=== PATIENT | female | born 1965 | race African-American/Black ===

== ENCOUNTER 2016-12-31 14:44 | Emergency (ER) | payer MEDICAID ==
[~2016-12-31] VITALS: Ht 162.6 cm; Wt 75.0 kg
[2016-12-31 15:15] VITALS: BP 146/87
== END 2016-12-31 17:50 | disposition left against medical advice (07) ==
LOC: ER 14:57
DX: R06.02 Shortness of breath (principal); I12.9 Hypertensive chronic kidney disease with stage 1 through stage 4 chronic kidney disease, or unspecified chronic kidney disease; N18.9 Chronic kidney disease, unspecified
CPT/HCPCS: 99283; 99285

== ENCOUNTER 2017-07-22 14:10 | Inpatient (IN) | payer MEDICAID ==
[~2017-07-22] VITALS: Ht 152.4 cm; Wt 93.0 kg
[2017-07-22] MEDS ORDERED: FURO-152 PO (14:14)
[2017-07-22] MEDS ORDERED: ALBUTEROL (0.083%) 2.5MG/3ML NEB HHN STA (16:27)
[2017-07-22] MEDS ORDERED: FUROSEMIDE 40MG/4ML VIAL IVP ONE (16:30)
[2017-07-22] MEDS ORDERED: ALBUTEROL (0.083%) 2.5MG/3ML NEB ONE (16:34)
[2017-07-22] MEDS ORDERED: HYDROCODONE/ACETAMINOPHEN 5/325MG TABLET PO PRN (17:15)
[2017-07-22] MEDS ORDERED: ONDANSETRON HCL 4MG/2ML VIAL IV PRN (17:15)
[2017-07-22] MEDS ORDERED: IPRATROPIUM/ALBUTEROL 0.5-3(2.5)MG/3ML NEB INH PRN (17:15)
[2017-07-22] MEDS ORDERED: ACETAMINOPHEN 325MG TABLET PO PRN (17:15)
[2017-07-22] MEDS ORDERED: MAGNESIUM/ALUMINUM HYDROXIDE/SIMETHICONE 30ML UDC PO PRN (17:15)
[2017-07-22] MEDS ORDERED: DOCUSATE SODIUM 100MG CAPSULE PO PRN (17:15)
[2017-07-22 17:19] LABS: BASOPHILS % 1.1 % (0.0-2.0); EOSINOPHILS % 2.3 % (0.0-5.0); HEMATOCRIT. 47.2 % (36.0-48.0); HEMOGLOBIN. 15.8 g/dL (12.0-16.0); LYMPHOCYTES % 32.9 % (20.0-50.0); MEAN CORPUSCULAR HEMOGLOBIN 31.2 pg (28.0-32.0); MEAN CORPUSCULAR VOLUME 93.1 fL (81.0-99.0); MEAN PLATELET VOLUME 9.1 fl (7.4-10.4); MONOCYTES % 7.9 % (2.0-8.0); NEUTROPHILS % 55.8 % (40.0-76.0); PLATELET 237 x1000/uL (130-400); RED BLOOD CELL COUNT 5.06 mill/uL (4.2-5.4); RED CELL DISTRIBUTION WIDTH 16.1 % (11.6-14.6)
[2017-07-22 17:29] LABS: INR 1.1; PARTIAL THROMBOPLASTIN TIME 24.5 sec (23.4-31.0); PROTHROMBIN TIME 11.3 sec (9.4-11.6)
[2017-07-22 19:52] LABS: CARBON DIOXIDE 22 mEq/L (21-32); CHLORIDE 107 mEq/L (98-107)
[2017-07-22 19:59] LABS: TROPONIN I 0.06 ng/mL (0.00-0.04)
[2017-07-22] MEDS: CLONIDINE 0.1MG TABLET PO PRN (21:11)
[2017-07-22 23:30] VITALS: BP 167/109
[2017-07-22 23:45] VITALS: BP 167/109
[2017-07-23 04:00] VITALS: BP 176/112
[2017-07-23] MEDS: CLONIDINE 0.1MG TABLET PO PRN ×2 (04:39→20:14)
[2017-07-23] MEDS: FUROSEMIDE 40MG/4ML VIAL IVP SCH ×2 (05:27→18:04)
[2017-07-23 07:40] VITALS: BP 152/94
[2017-07-23 08:07] LABS: CREATINE KINASE MB FRACTION 2.8 ng/mL (0.5-3.6)
[2017-07-23] MEDS ORDERED: ENOXAPARIN 40MG/0.4ML SYR SUBCUT SCH (09:00)
[2017-07-23 09:29] LABS: CLARITY URINE CLOUDY (CLEAR); COLOR URINE YELLOW (YELLOW); GLUCOSE URINE NEGATIVE (NEGATIVE); KETONES URINE NEGATIVE (NEGATIVE); LEUKOCYTE ESTERASE URINE TRACE (NEGATIVE); NITRITE URINE NEGATIVE (NEGATIVE); OCCULT BLOOD URINE 1+ (NEGATIVE); PROTEIN URINE 3+ (NEGATIVE); SPECIFIC GRAVITY URINE 1.018 (1.005-1.030); UROBILINOGEN URINE 0.2 E.U./dL (0.2-1.0)
[2017-07-23 09:53] LABS: *AMPHETAMINES SCREEN URINE NEGATIVE (NEGATIVE); *BARBITURATES SCREEN URINE NEGATIVE (NEGATIVE); *BENZODIAZEPINES SCREEN URINE NEGATIVE (NEGATIVE); *COCAINE SCREEN URINE NEGATIVE (NEGATIVE); CANNABINOID URINE SCREEN NEGATIVE (NEGATIVE); METHADONE URINE SCREEN NEGATIVE (NEGATIVE); OPIATES URINE SCREEN NEGATIVE (NEGATIVE); PHENCYCLIDINE URINE SCREEN NEGATIVE (NEGATIVE)
[2017-07-23] MEDS ORDERED: PNEUMOCOCCAL 23-VAL P-SAC VAC 0.5 ML IM ONE (10:00)
[2017-07-23 11:55] VITALS: BP 107/107
[2017-07-23 16:00] VITALS: BP 155/100
[2017-07-23 20:00] VITALS: BP 184/110
[2017-07-23] MEDS: ENOXAPARIN 40MG/0.4ML SYR SUBCUT SCH (20:14)
[2017-07-23] MEDS: CARVEDILOL 12.5MG TABLET PO SCH (21:54)
[2017-07-23] MEDS: LISINOPRIL 5MG TABLET PO SCH (21:54)
[2017-07-24 00:18] VITALS: BP 155/108
[2017-07-24] MEDS: CLONIDINE 0.1MG TABLET PO PRN (01:37)
[2017-07-24 04:00] VITALS: BP 156/95
[2017-07-24] MEDS: FUROSEMIDE 40MG/4ML VIAL IVP SCH (05:56)
[2017-07-24 06:56] LABS: BASOPHILS % 0.9 % (0.0-2.0); EOSINOPHILS % 1.3 % (0.0-5.0); HEMATOCRIT. 46.4 % (36.0-48.0); HEMOGLOBIN. 15.7 g/dL (12.0-16.0); LYMPHOCYTES % 16.5 % (20.0-50.0); MEAN CORPUSCULAR HEMOGLOBIN 31.3 pg (28.0-32.0); MEAN CORPUSCULAR VOLUME 92.2 fL (81.0-99.0); MONOCYTES % 10.3 % (2.0-8.0); PLATELET 219 x1000/uL (130-400); RED BLOOD CELL COUNT 5.03 mill/uL (4.2-5.4); RED CELL DISTRIBUTION WIDTH 15.6 % (11.6-14.6)
[2017-07-24 08:00] VITALS: BP 140/87
[2017-07-24] MEDS: CARVEDILOL 12.5MG TABLET PO SCH (08:56)
[2017-07-24] MEDS: LISINOPRIL 5MG TABLET PO SCH (08:56)
[2017-07-24] MEDS: ENOXAPARIN 40MG/0.4ML SYR SUBCUT SCH (08:59)
[2017-07-24] MEDS ORDERED: POTASSIUM CHLORIDE 20MEQ TABLET SR PO SCH (09:45)
[2017-07-24] MEDS ORDERED: SPIRONOLACTONE 25MG TABLET PO SCH (09:45)
[2017-07-24 12:00] VITALS: BP 124/82
[2017-07-24 15:39] VITALS: BP 130/75
[2017-07-24] MEDS ORDERED: CARVEDILOL 25MG TABLET PO SCH (21:00)
== END 2017-07-24 17:05 | disposition home or self-care (01) | DRG 194 ==
LOC: ER 14:51 → 8WST 16:40 → EDBEDREQ 16:46 → ENRESERV 21:36
PROVIDERS: ADMIT Internal Medicine; ATTEND Internal Medicine
DX: I13.0 Hypertensive heart and chronic kidney disease with heart failure and stage 1 through stage 4 chronic kidney disease, or unspecified chronic kidney disease (principal); Z68.41 Body mass index [BMI] 40.0-44.9, adult; I42.9 Cardiomyopathy, unspecified; I50.41 Acute combined systolic (congestive) and diastolic (congestive) heart failure; N39.0 Urinary tract infection, site not specified; I34.0 Nonrheumatic mitral (valve) insufficiency; R73.9 Hyperglycemia, unspecified; E66.9 Obesity, unspecified; N18.9 Chronic kidney disease, unspecified; Z91.19 Patient's noncompliance with other medical treatment and regimen; Z79.899 Other long term (current) drug therapy
CPT/HCPCS: 36415; 71010; 80048; 80053; 80061; 80305; 81001; 82550; 82553; 83036; 83605; 83690; 83735; 83880; 84443; 84484; 85025; 85610; 85730; 87040; 87086; 90732; 93005; 93306; 93970; 94640; 96374; 99291; J1650; J1940; J7611

== ENCOUNTER 2020-05-06 20:45 | Inpatient (IN) | payer MEDICAID ==
[~2020-05-06] VITALS: Ht 152.4 cm; Wt 103.0 kg
[2020-05-06] MEDS ORDERED: NITROGLYCERIN 0.4MG TABLET SL SL PRN (21:15)
[2020-05-06] MEDS ORDERED: ASPIRIN 81MG TABLET PO ONE (21:15)
[2020-05-06] MEDS ORDERED: FUROSEMIDE 40MG/4ML VIAL IV ONE (21:15)
[2020-05-06 22:02] LABS: BASOPHILS % 0.9 % (0.0-2.0); EOSINOPHILS % 1.4 % (0.0-5.0); HEMATOCRIT. 45.2 % (36.0-48.0); LYMPHOCYTES % 28.6 % (20.0-50.0); MEAN CORPUSCULAR HEMOGLOBIN 29.2 pg (28.0-32.0); MEAN CORPUSCULAR VOLUME 87.9 fL (81.0-99.0); MEAN PLATELET VOLUME 9.7 fl (7.4-10.4); MONOCYTES % 8.9 % (2.0-8.0); NEUTROPHILS % 60.2 % (40.0-76.0); PLATELET 196 x1000/uL (130-400); RED BLOOD CELL COUNT 5.15 mill/uL (4.2-5.4); RED CELL DISTRIBUTION WIDTH 19.5 % (11.6-14.6)
[2020-05-06 22:03] LABS: CHLORIDE 107 mEq/L (98-107)
[2020-05-06] MEDS ORDERED: ENOXAPARIN 120MG/0.8ML SYR SUBCUT ONE (23:15)
[2020-05-06] MEDS ORDERED: POTASSIUM CHLORIDE 20MEQ TABLET SR PO ONE (23:15)
[2020-05-07] VITALS (15 sets, daily range): BP systolic 129–218; BP diastolic 38–179
[2020-05-07] MEDS ORDERED: MORPHINE SULFATE 2 MG/ML CPJ (NOT FOR IM USE) IV PRN (01:45)
[2020-05-07] MEDS ORDERED: ONDANSETRON HCL 4MG/2ML INJ IV PRN (01:45)
[2020-05-07] MEDS: CLONIDINE 0.1MG TABLET PO PRN (01:59)
[2020-05-07] MEDS: AMLODIPINE 10MG TABLET PO SCH (06:58)
[2020-05-07 06:59] LABS: CREATINE KINASE MB FRACTION 2.4 ng/mL (0.5-3.6)
[2020-05-07] MEDS ORDERED: LISINOPRIL 20MG TABLET PO SCH (07:00)
[2020-05-07] MEDS: CARVEDILOL 6.25 MG TABLET PO SCH ×2 (07:01→16:54)
[2020-05-07 07:14] LABS: BASOPHILS % 0.7 % (0.0-2.0); HEMATOCRIT. 44.6 % (36.0-48.0); HEMOGLOBIN. 14.8 g/dL (12.0-16.0); LYMPHOCYTES % 30.3 % (20.0-50.0); MEAN CORPUSCULAR HEMOGLOBIN 29.3 pg (28.0-32.0); MEAN CORPUSCULAR VOLUME 88.2 fL (81.0-99.0); MEAN PLATELET VOLUME 9.7 fl (7.4-10.4); MONOCYTES % 9.3 % (2.0-8.0); NEUTROPHILS % 58.7 % (40.0-76.0); PLATELET 204 x1000/uL (130-400); RED BLOOD CELL COUNT 5.05 mill/uL (4.2-5.4); RED CELL DISTRIBUTION WIDTH 19.1 % (11.6-14.6)
[2020-05-07] MEDS ORDERED: HYDRALAZINE 20MG/ML VIAL IV PRN (08:45)
[2020-05-07] MEDS ORDERED: POTASSIUM CHLORIDE 20MEQ TABLET SR PO SCH (08:45)
[2020-05-07] MEDS ORDERED: ASPIRIN 325MG EC TABLET PO SCH (09:00)
[2020-05-07] MEDS ORDERED: FUROSEMIDE 40MG TABLET PO SCH (09:00)
[2020-05-07] MEDS: FUROSEMIDE 40MG/4ML VIAL IVP SCH ×2 (09:12→16:53)
[2020-05-07] MEDS: LISINOPRIL 20MG TABLET PO SCH (09:13)
[2020-05-07] MEDS: ISOSORBIDE MONONITRATE 30MG TABLET SR 24HR PO SCH (09:13)
[2020-05-07] MEDS: ENOXAPARIN 30MG/0.3ML SYR SUBCUT SCH (12:00)
[2020-05-07] MEDS ORDERED: HYDRALAZINE HCL 100MG TABLET PO SCH (12:30)
[2020-05-07 16:19] LABS: CREATINE KINASE MB FRACTION 1.9 ng/mL (0.5-3.6)
[2020-05-07] MEDS: ATORVASTATIN CALCIUM 40MG TABLET PO SCH (20:32)
[2020-05-07] MEDS: HYDRALAZINE HCL 100MG TABLET PO SCH (20:34)
[2020-05-08] VITALS (15 sets, daily range): BP systolic 124–171; BP diastolic 60–129
[2020-05-08] MEDS: ENOXAPARIN 30MG/0.3ML SYR SUBCUT SCH ×3 (02:27→15:48)
[2020-05-08] MEDS: CLONIDINE 0.1MG TABLET PO PRN (02:31)
[2020-05-08] MEDS: HYDRALAZINE HCL 100MG TABLET PO SCH ×3 (06:01→21:11)
[2020-05-08] MEDS: CARVEDILOL 6.25 MG TABLET PO SCH (06:04)
[2020-05-08] MEDS ORDERED: POTASSIUM CHLORIDE 20MEQ TABLET SR PO SCH (09:00)
[2020-05-08] MEDS: ISOSORBIDE MONONITRATE 30MG TABLET SR 24HR PO SCH (10:14)
[2020-05-08] MEDS: AMLODIPINE 10MG TABLET PO SCH (10:14)
[2020-05-08] MEDS: ASPIRIN 81MG EC TABLET PO SCH (10:15)
[2020-05-08] MEDS: LISINOPRIL 20MG TABLET PO SCH (10:16)
[2020-05-08] MEDS: FUROSEMIDE 40MG/4ML VIAL IVP SCH ×2 (10:16→16:06)
[2020-05-08] MEDS: POTASSIUM CHLORIDE 20MEQ TABLET SR PO SCH (10:18)
[2020-05-08] MEDS: CARVEDILOL 12.5MG TABLET PO SCH (18:24)
[2020-05-08] MEDS: ATORVASTATIN CALCIUM 40MG TABLET PO SCH (21:11)
[2020-05-09] VITALS (12 sets, daily range): BP systolic 120–168; BP diastolic 46–96
[2020-05-09] MEDS: HYDRALAZINE HCL 100MG TABLET PO SCH (06:20)
[2020-05-09] MEDS: CARVEDILOL 12.5MG TABLET PO SCH ×2 (06:22→17:13)
[2020-05-09] MEDS: ASPIRIN 81MG EC TABLET PO SCH (08:37)
[2020-05-09] MEDS: POTASSIUM CHLORIDE 20MEQ TABLET SR PO SCH (08:37)
[2020-05-09] MEDS: FUROSEMIDE 40MG/4ML VIAL IVP SCH ×2 (08:37→17:13)
[2020-05-09] MEDS: ISOSORBIDE MONONITRATE 30MG TABLET SR 24HR PO SCH (10:14)
[2020-05-09] MEDS: AMLODIPINE 2.5MG TABLET PO SCH ×2 (11:59→20:55)
[2020-05-09] MEDS: ENOXAPARIN 30MG/0.3ML SYR SUBCUT SCH ×3 (12:00→23:32)
[2020-05-09] MEDS: HYDRALAZINE HCL 50MG TABLET PO SCH ×2 (13:28→22:53)
[2020-05-09] MEDS: ATORVASTATIN CALCIUM 40MG TABLET PO SCH (20:55)
[2020-05-09] MEDS ORDERED: HYDROCODONE/ACETAMINOPHEN 5/325MG TABLET PO PRN (21:15)
[2020-05-10] VITALS (10 sets, daily range): BP systolic 119–148; BP diastolic 64–89
[2020-05-10] MEDS: HYDRALAZINE HCL 50MG TABLET PO SCH ×2 (06:12→13:36)
[2020-05-10] MEDS: CARVEDILOL 12.5MG TABLET PO SCH (06:12)
[2020-05-10] MEDS: ASPIRIN 81MG EC TABLET PO SCH (08:27)
[2020-05-10] MEDS: ISOSORBIDE MONONITRATE 30MG TABLET SR 24HR PO SCH (08:28)
[2020-05-10] MEDS: AMLODIPINE 2.5MG TABLET PO SCH (08:28)
[2020-05-10] MEDS: POTASSIUM CHLORIDE 20MEQ TABLET SR PO SCH (08:29)
[2020-05-10] MEDS ORDERED: LISINOPRIL 20MG TABLET PO SCH (09:00)
[2020-05-10] MEDS ORDERED: FUROSEMIDE 40MG TABLET PO SCH (09:00)
[2020-05-10] MEDS ORDERED: FUROSEMIDE 40MG/4ML VIAL IVP NR (09:30)
[2020-05-10] MEDS: ENOXAPARIN 30MG/0.3ML SYR SUBCUT SCH (12:00)
[2020-05-10] MEDS ORDERED: HYDR-4135 PO (15:12)
[2020-05-10] MEDS ORDERED: POTA20TA82 PO (15:12)
[2020-05-10] MEDS ORDERED: ISOS30TA6 PO (15:12)
[2020-05-10] MEDS ORDERED: FURO40TA5 PO (15:12)
[2020-05-10] MEDS ORDERED: LOSA100T32 MT (15:12)
[2020-05-10] MEDS ORDERED: ASPI-1158 PO (15:12)
[2020-05-10] MEDS ORDERED: LIP40 PO (15:12)
[2020-05-10] MEDS ORDERED: COR12 PO (15:12)
== END 2020-05-10 16:01 | disposition home or self-care (01) | DRG 194 ==
LOC: ER 20:45 → 3WST 23:04 → EDBEDREQ 23:06 → EDBEDREQTM 23:06 → ENRESERV 23:36
PROVIDERS: ADMIT Internal Medicine; ATTEND Internal Medicine
DX: I11.0 Hypertensive heart disease with heart failure (principal); I21.4 Non-ST elevation (NSTEMI) myocardial infarction; I50.23 Acute on chronic systolic (congestive) heart failure; E43 Unspecified severe protein-calorie malnutrition; N17.0 Acute kidney failure with tubular necrosis; I27.20 Pulmonary hypertension, unspecified; I42.0 Dilated cardiomyopathy; I42.9 Cardiomyopathy, unspecified; E66.9 Obesity, unspecified; E87.6 Hypokalemia; I16.0 Hypertensive urgency; I34.0 Nonrheumatic mitral (valve) insufficiency; I95.9 Hypotension, unspecified; Z68.41 Body mass index [BMI] 40.0-44.9, adult; Z91.19 Patient's noncompliance with other medical treatment and regimen; Z79.899 Other long term (current) drug therapy; Z71.6 Tobacco abuse counseling
CPT/HCPCS: 36415; 71045; 80048; 80053; 82550; 82553; 83880; 84484; 85025; 93005; 93306; 96374; 99291; J1650; J1940

== ENCOUNTER 2020-07-25 21:11 | Emergency (ER) | payer MEDICAID ==
[~2020-07-25] VITALS: Ht 167.6 cm; Wt 105.0 kg
[~2020-07-25 21:11] MED LIST: ASPI-1158 PO; COR12 PO; FURO40TA5 PO; HYDR-4135 PO; ISOS30TA6 PO; LIP40 PO; LOSA100T32 MT; POTA20TA82 PO
[2020-07-25] MEDS ORDERED: FUROSEMIDE 40MG/4ML VIAL IVP ONE (22:15)
[2020-07-25 23:06] LABS: BG CARBOXYHEMOGLOBIN 0.6 % (0.5-1.5); BG DEOXYHEMOGLOBIN 5.2 % (0.0-5.0); BG FRACTION INSPIRED OXYGEN 21; BG HCO3 ACT 22.6 mmol/L (22.0-26.0); BG METHEMOGLOBIN 0.2 % (0.0-1.5); BG OXYGEN SATURATION 94.8 % (92.0-98.5); BG PCO2 31.5 mmHg (35.0-45.0); BG PH 7.474 (7.350-7.450); BG SAMPLE SITE LEFT RADIAL; BG TOTAL HEMOGLOBIN 14.8 g/dL (12.0-18.0); BG VENT MODE ROOM AIR
[2020-07-25 23:54] LABS: BASOPHILS % 0.6 % (0.0-2.0); EOSINOPHILS % 1.7 % (0.0-5.0); HEMATOCRIT. 41.7 % (36.0-48.0); HEMOGLOBIN. 13.8 g/dL (12.0-16.0); LYMPHOCYTES % 22.5 % (20.0-50.0); MEAN CORPUSCULAR VOLUME 90.4 fL (81.0-99.0); MEAN PLATELET VOLUME 9.2 fl (7.4-10.4); MONOCYTES % 6.9 % (2.0-8.0); NEUTROPHILS % 68.3 % (40.0-76.0); PLATELET 207 x1000/uL (130-400); RED BLOOD CELL COUNT 4.61 mill/uL (4.2-5.4)
[2020-07-26 00:03] LABS: CHLORIDE 106 mEq/L (98-107)
[2020-07-26] MEDS ORDERED: AMLODIPINE 10MG TABLET PO ONE (01:00)
[2020-07-26 01:30] VITALS: BP 196/126
== END 2020-07-26 01:30 | disposition left against medical advice (07) ==
LOC: ER 21:11 → ENRESERV 07-26 03:05 → CANRESERV 07-26 03:05 → CANBEDREQ 07-26 16:20
DX: R06.00 Dyspnea, unspecified (principal); I11.0 Hypertensive heart disease with heart failure; I50.9 Heart failure, unspecified; Z79.82 Long term (current) use of aspirin; Z79.899 Other long term (current) drug therapy
CPT/HCPCS: 36415; 36600; 71045; 80053; 82375; 82805; 83735; 83880; 84100; 84484; 85025; 93005; 96374; 99285; J1940

== ENCOUNTER 2020-07-27 13:10 | Emergency (ER) | payer MEDICAID ==
[~2020-07-27] VITALS: Ht 162.6 cm; Wt 95.0 kg
[2020-07-27 14:24] LABS: BASOPHILS % 0.7 % (0.0-2.0); EOSINOPHILS % 2.1 % (0.0-5.0); HEMATOCRIT. 39.3 % (36.0-48.0); MEAN CORPUSCULAR HEMOGLOBIN 30.2 pg (28.0-32.0); MEAN CORPUSCULAR VOLUME 91.3 fL (81.0-99.0); MEAN PLATELET VOLUME 9.4 fl (7.4-10.4); MONOCYTES % 10.4 % (2.0-8.0); NEUTROPHILS % 61.8 % (40.0-76.0); PLATELET 197 x1000/uL (130-400); RED BLOOD CELL COUNT 4.31 mill/uL (4.2-5.4); RED CELL DISTRIBUTION WIDTH 21.5 % (11.6-14.6)
[2020-07-27 14:25] LABS: CHLORIDE 106 mEq/L (98-107)
[2020-07-27] MEDS ORDERED: FUROSEMIDE 40MG/4ML VIAL IVP NR (15:00)
[2020-07-27] MEDS ORDERED: HYDROCODONE/ACETAMINOPHEN 5/325MG TABLET PO PRN (17:00)
[2020-07-27] MEDS ORDERED: IPRATROPIUM/ALBUTEROL 0.5-3(2.5)MG/3ML NEB HHN PRN ×2 (17:00)
[2020-07-27] MEDS ORDERED: DOCUSATE SODIUM 100MG CAPSULE PO PRN (17:00)
[2020-07-27] MEDS ORDERED: MAGNESIUM/ALUMINUM HYDROXIDE/SIMETHICONE 30ML UDC PO PRN (17:00)
[2020-07-27] MEDS ORDERED: CLONIDINE 0.1MG TABLET PO PRN (17:00)
[2020-07-27] MEDS ORDERED: ONDANSETRON HCL 4MG/2ML INJ IV PRN (17:00)
[2020-07-27] MEDS ORDERED: ENOXAPARIN 40MG/0.4ML SYR SUBCUT SCH (17:00)
[2020-07-27] MEDS ORDERED: ACETAMINOPHEN 325MG TABLET PO PRN (17:00)
[2020-07-27] MEDS ORDERED: IPRATROPIUM/ALBUTEROL 0.5-3(2.5)MG/3ML NEB HHN SCH (18:00)
[2020-07-27 19:08] LABS: CLARITY URINE CLEAR (CLEAR); COLOR URINE YELLOW (YELLOW); KETONES URINE NEGATIVE (NEGATIVE); LEUKOCYTE ESTERASE URINE TRACE (NEGATIVE); NITRITE URINE NEGATIVE (NEGATIVE); OCCULT BLOOD URINE TRACE (NEGATIVE); PH URINE 7.5 (4.5-8.0); PROTEIN URINE 2+ (NEGATIVE); SPECIFIC GRAVITY URINE 1.008 (1.005-1.030); UROBILINOGEN URINE 0.2 E.U./dL (0.2-1.0)
[2020-07-27 19:26] LABS: *AMPHETAMINES SCREEN URINE NEGATIVE (NEGATIVE); *BARBITURATES SCREEN URINE NEGATIVE (NEGATIVE); *BENZODIAZEPINES SCREEN URINE NEGATIVE (NEGATIVE); *COCAINE SCREEN URINE NEGATIVE (NEGATIVE)
[2020-07-27 19:27] LABS: CANNABINOID URINE SCREEN NEGATIVE (NEGATIVE); METHADONE URINE SCREEN NEGATIVE (NEGATIVE); OPIATES URINE SCREEN NEGATIVE (NEGATIVE); PHENCYCLIDINE URINE SCREEN NEGATIVE (NEGATIVE)
[2020-07-27] MEDS ORDERED: ZOLPIDEM TARTRATE 5MG TABLET PO PRN (21:00)
[2020-07-27 22:31] VITALS: BP 144/66
[2020-07-28] MEDS ORDERED: PANTOPRAZOLE SODIUM 40 MG/VIAL IV SCH (09:00)
[2020-07-29] MEDS ORDERED: FUROSEMIDE 40MG/4ML VIAL IV SCH (09:00)
== END 2020-07-27 22:43 | disposition left against medical advice (07) ==
LOC: ER 13:10 → EDBEDREQ 14:48 → EDBEDREQTM 14:48 → EDBEDREQ 16:42 → EDBEDREQTM 16:42 → CANRESERV 20:56 → ENRESERV 20:56 → ER 22:43 → CANBEDREQ 07-28 01:58
DX: I13.0 Hypertensive heart and chronic kidney disease with heart failure and stage 1 through stage 4 chronic kidney disease, or unspecified chronic kidney disease (principal); N18.9 Chronic kidney disease, unspecified; I50.9 Heart failure, unspecified; E44.1 Mild protein-calorie malnutrition; R79.89 Other specified abnormal findings of blood chemistry; E78.00 Pure hypercholesterolemia, unspecified; Z68.35 Body mass index [BMI] 35.0-35.9, adult; Z79.82 Long term (current) use of aspirin
CPT/HCPCS: 36415; 71045; 80053; 80305; 81003; 83880; 84484; 85025; 87086; 93005; 93970; 96372; 96374; 99285; J1650; J1940

== ENCOUNTER 2021-02-10 21:40 | Inpatient (IN) | payer MEDICAID ==
[~2021-02-10] VITALS: Ht 170.2 cm; Wt 126.6 kg
[~2021-02-10 21:40] MED LIST changes: -ASPI-1158 PO; +ASPI-1406 PO; -ISOS30TA6 PO; +ISOS30TA91 PO
[2021-02-10] MEDS ORDERED: ONDANSETRON HCL 4MG/2ML INJ IV STA (22:11)
[2021-02-10] MEDS ORDERED: MORPHINE SULFATE 4 MG/ML CPJ (NOT FOR IM USE) IV STA (22:11)
[2021-02-10] MEDS ORDERED: NITROGLYCERIN OINT 1GM/INCH UDPKT TD ONE (22:15)
[2021-02-10] MEDS ORDERED: FUROSEMIDE 40MG/4ML VIAL IV ONE (22:15)
[2021-02-10 23:11] LABS: BASOPHILS % 1.2 % (0.0-2.0); EOSINOPHILS % 2.5 % (0.0-5.0); HEMATOCRIT. 45.3 % (36.0-48.0); HEMOGLOBIN. 14.9 g/dL (12.0-16.0); LYMPHOCYTES % 34.8 % (20.0-50.0); MEAN CORPUSCULAR HEMOGLOBIN 29.1 pg (28.0-32.0); MEAN CORPUSCULAR VOLUME 88.8 fL (81.0-99.0); MEAN PLATELET VOLUME 9.4 fl (7.4-10.4); NEUTROPHILS % 50.5 % (40.0-76.0); PLATELET 158 x1000/uL (130-400); RED BLOOD CELL COUNT 5.11 mill/uL (4.2-5.4); RED CELL DISTRIBUTION WIDTH 18.3 % (11.6-14.6)
[2021-02-10 23:20] LABS: CHLORIDE 105 mEq/L (98-107)
[2021-02-10 23:22] LABS: INR 1.1; PARTIAL THROMBOPLASTIN TIME 26.6 sec (23.4-31.0); PROTHROMBIN TIME 11.9 sec (9.6-11.0)
[2021-02-11] MEDS ORDERED: ASPIRIN 325MG EC TABLET PO ONE (01:30)
[2021-02-11] MEDS: CLONIDINE 0.1MG TABLET PO PRN ×2 (04:33→10:22)
[2021-02-11] MEDS ORDERED: CLONIDINE 0.1MG TABLET PO SCH (05:30)
[2021-02-11] MEDS ORDERED: HYDRALAZINE 20MG/ML VIAL IV PRN (05:30)
[2021-02-11 08:00] VITALS: BP_SYST 156; BP_SYST 168; BP_DIAS 100; BP_DIAS 92
[2021-02-11 09:00] VITALS: BP 152/86
[2021-02-11 12:00] VITALS: BP 156/90
[2021-02-11] MEDS ORDERED: FUROSEMIDE 40MG/4ML VIAL IVP SCH (14:15)
[2021-02-11] MEDS ORDERED: METOLAZONE 2.5MG TABLET PO NR (15:30)
[2021-02-11] MEDS: LOSARTAN POTASSIUM 100 MG TABLET PO SCH (15:57)
[2021-02-11 16:00] VITALS: BP 166/91
[2021-02-11] MEDS: FUROSEMIDE 40MG/4ML VIAL IVP SCH (18:58)
[2021-02-11] MEDS ORDERED: HYDRALAZINE HCL 100MG TABLET PO NR (19:15)
[2021-02-11 20:00] VITALS: BP 153/98
[2021-02-11] MEDS: CARVEDILOL 12.5MG TABLET PO SCH (22:23)
[2021-02-11] MEDS: HYDRALAZINE HCL 100MG TABLET PO SCH (22:24)
[2021-02-12] VITALS: BP 132/80
[2021-02-12 04:00] VITALS: BP 147/89
[2021-02-12] MEDS: FUROSEMIDE 40MG/4ML VIAL IVP SCH ×2 (06:24→17:09)
[2021-02-12 06:31] LABS: BASOPHILS % 0.7 % (0.0-2.0); EOSINOPHILS % 2.9 % (0.0-5.0); HEMATOCRIT. 43.3 % (36.0-48.0); LYMPHOCYTES % 22.8 % (20.0-50.0); MEAN CORPUSCULAR HEMOGLOBIN 29.3 pg (28.0-32.0); MEAN CORPUSCULAR VOLUME 90.3 fL (81.0-99.0); MEAN PLATELET VOLUME 9.9 fl (7.4-10.4); MONOCYTES % 9.5 % (2.0-8.0); NEUTROPHILS % 64.1 % (40.0-76.0); PLATELET 121 x1000/uL (130-400); RED BLOOD CELL COUNT 4.79 mill/uL (4.2-5.4); RED CELL DISTRIBUTION WIDTH 18.9 % (11.6-14.6)
[2021-02-12 08:00] VITALS: BP 161/74
[2021-02-12] MEDS: CARVEDILOL 12.5MG TABLET PO SCH ×2 (09:55→22:37)
[2021-02-12] MEDS: LOSARTAN POTASSIUM 100 MG TABLET PO SCH (09:55)
[2021-02-12] MEDS: HYDRALAZINE HCL 100MG TABLET PO SCH ×2 (09:55→22:37)
[2021-02-12] MEDS: POTASSIUM CHLORIDE 20MEQ TABLET SR PO SCH (11:33)
[2021-02-12] MEDS: ASPIRIN 81MG TABLET PO SCH (11:33)
[2021-02-12] MEDS: ENOXAPARIN 30MG/0.3ML SYR SUBCUT SCH (11:33)
[2021-02-12 12:00] VITALS: BP 101/54
[2021-02-12] MEDS: CLONIDINE 0.2MG TABLET PO SCH ×2 (14:00→22:37)
[2021-02-12 16:00] VITALS: BP 150/78
[2021-02-12 20:00] VITALS: BP 139/61
[2021-02-13] VITALS: BP 105/58
[2021-02-13] MEDS: ENOXAPARIN 30MG/0.3ML SYR SUBCUT SCH ×3 (00:03→23:00)
[2021-02-13 04:00] VITALS: BP 143/61
[2021-02-13] MEDS: FUROSEMIDE 40MG/4ML VIAL IVP SCH ×2 (06:53→17:11)
[2021-02-13] MEDS: CLONIDINE 0.2MG TABLET PO SCH ×3 (06:54→22:00)
[2021-02-13 08:00] VITALS: BP 140/50
[2021-02-13] MEDS: ASPIRIN 81MG TABLET PO SCH (09:33)
[2021-02-13] MEDS: POTASSIUM CHLORIDE 20MEQ TABLET SR PO SCH (09:33)
[2021-02-13] MEDS: LOSARTAN POTASSIUM 100 MG TABLET PO SCH (09:33)
[2021-02-13] MEDS: HYDROCODONE/ACETAMINOPHEN 5/325MG TABLET PO PRN (09:35)
[2021-02-13] MEDS: CARVEDILOL 12.5MG TABLET PO SCH ×2 (10:42→21:00)
[2021-02-13] MEDS: HYDRALAZINE HCL 100MG TABLET PO SCH ×2 (10:43→21:00)
[2021-02-13 12:00] VITALS: BP 109/60
[2021-02-13 16:00] VITALS: BP 119/61
[2021-02-13 16:16] LABS: BASOPHILS % 0.8 % (0.0-2.0); EOSINOPHILS % 2.5 % (0.0-5.0); HEMATOCRIT. 39.6 % (36.0-48.0); HEMOGLOBIN. 12.9 g/dL (12.0-16.0); LYMPHOCYTES % 21.7 % (20.0-50.0); MEAN CORPUSCULAR VOLUME 89.1 fL (81.0-99.0); MEAN PLATELET VOLUME 10.1 fl (7.4-10.4); MONOCYTES % 11.2 % (2.0-8.0); NEUTROPHILS % 63.8 % (40.0-76.0); PLATELET 134 x1000/uL (130-400); RED BLOOD CELL COUNT 4.45 mill/uL (4.2-5.4); RED CELL DISTRIBUTION WIDTH 18.6 % (11.6-14.6)
[2021-02-13 16:26] LABS: CHLORIDE 100 mEq/L (98-107)
[2021-02-13] MEDS: CLONIDINE 0.1MG TABLET PO PRN (17:20)
[2021-02-13 20:00] VITALS: BP 115/66
[2021-02-14] VITALS: BP 115/66
[2021-02-14 04:00] VITALS: BP 149/63
[2021-02-14] MEDS: CLONIDINE 0.2MG TABLET PO SCH ×3 (06:47→22:12)
[2021-02-14] MEDS: FUROSEMIDE 40MG/4ML VIAL IVP SCH ×2 (06:47→16:30)
[2021-02-14 08:00] VITALS: BP 140/86
[2021-02-14] MEDS: ASPIRIN 81MG TABLET PO SCH (09:27)
[2021-02-14] MEDS: CARVEDILOL 12.5MG TABLET PO SCH ×2 (09:27→22:12)
[2021-02-14] MEDS: LOSARTAN POTASSIUM 100 MG TABLET PO SCH (09:27)
[2021-02-14] MEDS: HYDRALAZINE HCL 100MG TABLET PO SCH ×2 (09:27→22:12)
[2021-02-14] MEDS: POTASSIUM CHLORIDE 20MEQ TABLET SR PO SCH (09:27)
[2021-02-14] MEDS: ENOXAPARIN 30MG/0.3ML SYR SUBCUT SCH (10:27)
[2021-02-14 12:00] VITALS: BP 145/86
[2021-02-14] MEDS: HYDROCODONE/ACETAMINOPHEN 5/325MG TABLET PO PRN (14:22)
[2021-02-14 14:40] LABS: CLARITY URINE CLEAR (CLEAR); COLOR URINE YELLOW (YELLOW); KETONES URINE NEGATIVE (NEGATIVE); LEUKOCYTE ESTERASE URINE NEGATIVE (NEGATIVE); NITRITE URINE NEGATIVE (NEGATIVE); OCCULT BLOOD URINE NEGATIVE (NEGATIVE); PROTEIN URINE 3+ (NEGATIVE); SPECIFIC GRAVITY URINE 1.014 (1.005-1.030)
[2021-02-14 14:59] LABS: *AMPHETAMINES SCREEN URINE NEGATIVE (NEGATIVE); *BARBITURATES SCREEN URINE NEGATIVE (NEGATIVE); *BENZODIAZEPINES SCREEN URINE NEGATIVE (NEGATIVE); *COCAINE SCREEN URINE NEGATIVE (NEGATIVE); CANNABINOID URINE SCREEN NEGATIVE (NEGATIVE); METHADONE URINE SCREEN NEGATIVE (NEGATIVE); OPIATES URINE SCREEN PRESUMTIVE POSITIVE (NEGATIVE); PHENCYCLIDINE URINE SCREEN NEGATIVE (NEGATIVE)
[2021-02-14 16:00] VITALS: BP 142/69
[2021-02-14 20:00] VITALS: BP 161/77
[2021-02-14] MEDS: ENOXAPARIN 40MG/0.4ML SYR SUBCUT SCH (21:00)
[2021-02-14] MEDS ORDERED: ATORVASTATIN CALCIUM 40MG TABLET PO SCH (21:00)
[2021-02-15] VITALS: BP 105/63
[2021-02-15 04:00] VITALS: BP 155/72
[2021-02-15] MEDS: FUROSEMIDE 40MG/4ML VIAL IVP SCH (06:47)
[2021-02-15] MEDS: CLONIDINE 0.2MG TABLET PO SCH (06:47)
[2021-02-15 08:00] VITALS: BP 150/62
[2021-02-15 08:58] LABS: HEMATOCRIT. 40.5 % (36.0-48.0); HEMOGLOBIN. 13.3 g/dL (12.0-16.0); MEAN CORPUSCULAR HEMOGLOBIN 29.2 pg (28.0-32.0); MEAN CORPUSCULAR VOLUME 88.9 fL (81.0-99.0); MEAN PLATELET VOLUME 9.1 fl (7.4-10.4); PLATELET 134 x1000/uL (130-400); RED BLOOD CELL COUNT 4.56 mill/uL (4.2-5.4); RED CELL DISTRIBUTION WIDTH 18.8 % (11.6-14.6)
[2021-02-15] MEDS: LOSARTAN POTASSIUM 100 MG TABLET PO SCH ×2 (09:00→09:45)
[2021-02-15] MEDS: ENOXAPARIN 40MG/0.4ML SYR SUBCUT SCH (09:00)
[2021-02-15] MEDS: POTASSIUM CHLORIDE 20MEQ TABLET SR PO SCH ×2 (09:00→09:44)
[2021-02-15] MEDS: HYDRALAZINE HCL 100MG TABLET PO SCH ×2 (09:00→09:45)
[2021-02-15] MEDS: CARVEDILOL 12.5MG TABLET PO SCH (09:45)
[2021-02-15] MEDS: ASPIRIN 81MG TABLET PO SCH (09:45)
[2021-02-15] MEDS ORDERED: COR12 PO (11:06)
[2021-02-15] MEDS ORDERED: FURO80TA87 MT (11:06)
[2021-02-15] MEDS ORDERED: ASPI-1160 PO (11:06)
[2021-02-15] MEDS ORDERED: LOSA100T32 MT (11:06)
[2021-02-15] MEDS ORDERED: POTA20TA82 PO (11:06)
[2021-02-15] MEDS ORDERED: HYDR100T26 PO (11:06)
[2021-02-15] MEDS ORDERED: LIP40 PO (11:06)
[2021-02-15] MEDS ORDERED: CLON0.2T PO (11:06)
[2021-02-15 12:00] VITALS: BP 148/63
[2021-02-15 13:19] VITALS: BP 148/63
[2021-02-15 17:57] LABS: PLATELET ESTIMATE NORMAL
== END 2021-02-15 16:00 | disposition home or self-care (01) | DRG 194 ==
LOC: ER 21:40 → 8WST 02-11 01:27 → ENRESERV 02-11 02:59
PROVIDERS: ADMIT Internal Medicine; ATTEND Internal Medicine
DX: I13.0 Hypertensive heart and chronic kidney disease with heart failure and stage 1 through stage 4 chronic kidney disease, or unspecified chronic kidney disease (principal); I21.A1 Myocardial infarction type 2; E43 Unspecified severe protein-calorie malnutrition; N17.9 Acute kidney failure, unspecified; E66.01 Morbid (severe) obesity due to excess calories; I27.20 Pulmonary hypertension, unspecified; E11.22 Type 2 diabetes mellitus with diabetic chronic kidney disease; I16.0 Hypertensive urgency; I50.23 Acute on chronic systolic (congestive) heart failure; I42.9 Cardiomyopathy, unspecified; Z68.41 Body mass index [BMI] 40.0-44.9, adult; K57.30 Diverticulosis of large intestine without perforation or abscess without bleeding; E78.5 Hyperlipidemia, unspecified; N18.9 Chronic kidney disease, unspecified; Z20.822 Contact with and (suspected) exposure to COVID-19; T50.2X5A Adverse effect of carbonic-anhydrase inhibitors, benzothiadiazides and other diuretics, initial encounter; G47.33 Obstructive sleep apnea (adult) (pediatric); Z91.14 Patient's other noncompliance with medication regimen; Z91.19 Patient's noncompliance with other medical treatment and regimen; Z79.82 Long term (current) use of aspirin; Z79.899 Other long term (current) drug therapy; Z79.84 Long term (current) use of oral hypoglycemic drugs; Y92.89 Other specified places as the place of occurrence of the external cause
CPT/HCPCS: 36415; 71045; 74176; 76770; 80048; 80053; 80305; 81003; 83036; 83735; 83880; 84100; 84484; 85025; 87426; 93005; 93306; 99285; C1893; J0360; J1650; J1940; J2270; J2405

== ENCOUNTER 2021-03-09 05:23 | Inpatient (IN) | payer MEDICAID, OTHER ==
[~2021-03-09] VITALS: Ht 152.4 cm; Wt 93.4 kg
[2021-03-09] VITALS (8 sets, daily range): BP systolic 92–187; BP diastolic 58–115
[~2021-03-09 05:23] MED LIST changes: +ASPI-1160 PO; +CLON0.2T PO; +FURO80TA87 MT; +HYDR100T26 PO
[2021-03-09] MEDS ORDERED: NITROGLYCERIN OINT 1GM/INCH UDPKT TD ONE (05:45)
[2021-03-09] MEDS ORDERED: ASPIRIN 81MG TABLET PO ONE (05:45)
[2021-03-09] MEDS ORDERED: FUROSEMIDE 40MG/4ML VIAL IV ONE (05:45)
[2021-03-09 05:57] LABS: BASOPHILS % 0.9 % (0.0-2.0); EOSINOPHILS % 1.9 % (0.0-5.0); HEMATOCRIT. 46.3 % (36.0-48.0); HEMOGLOBIN. 14.7 g/dL (12.0-16.0); LYMPHOCYTES % 24.5 % (20.0-50.0); MEAN CORPUSCULAR HEMOGLOBIN 28.4 pg (28.0-32.0); MEAN CORPUSCULAR VOLUME 89.5 fL (81.0-99.0); MONOCYTES % 14.3 % (2.0-8.0); NEUTROPHILS % 58.4 % (40.0-76.0); PLATELET 211 x1000/uL (130-400); RED BLOOD CELL COUNT 5.18 mill/uL (4.2-5.4); RED CELL DISTRIBUTION WIDTH 21.1 % (11.6-14.6)
[2021-03-09 06:02] LABS: CHLORIDE 109 mEq/L (98-107)
[2021-03-09] MEDS ORDERED: FUROSEMIDE 40MG/4ML VIAL IV SCH (09:00)
[2021-03-09] MEDS ORDERED: IPRATROPIUM/ALBUTEROL 0.5-3(2.5)MG/3ML NEB HHN PRN (09:00)
[2021-03-09] MEDS ORDERED: DIPHENHYDRAMINE 50MG/ML VIAL IV PRN (09:00)
[2021-03-09] MEDS: ENOXAPARIN 40MG/0.4ML SYR SUBCUT SCH ×2 (10:00→10:25)
[2021-03-09] MEDS: HYDRALAZINE 20MG/ML VIAL IV PRN (10:57)
[2021-03-09] MEDS: NITROGLYCERIN OINT 1GM/INCH UDPKT TD SCH ×3 (13:30→21:10)
[2021-03-09] MEDS: LOSARTAN POTASSIUM 50 MG TABLET PO SCH (13:30)
[2021-03-09 14:52] LABS: PHOSPHORUS 3.5 mg/dL (2.5-4.9)
[2021-03-09] MEDS: CLONIDINE 0.1MG TABLET PO PRN (15:14)
[2021-03-09 17:58] LABS: CLARITY URINE CLEAR (CLEAR); COLOR URINE YELLOW (YELLOW); KETONES URINE NEGATIVE (NEGATIVE); LEUKOCYTE ESTERASE URINE NEGATIVE (NEGATIVE); NITRITE URINE NEGATIVE (NEGATIVE); OCCULT BLOOD URINE NEGATIVE (NEGATIVE); PROTEIN URINE 2+ (NEGATIVE); SPECIFIC GRAVITY URINE 1.007 (1.005-1.030); UROBILINOGEN URINE 0.2 E.U./dL (0.2-1.0)
[2021-03-09] MEDS: FUROSEMIDE 40MG/4ML VIAL IVP SCH (18:05)
[2021-03-09 18:13] LABS: *AMPHETAMINES SCREEN URINE NEGATIVE (NEGATIVE); *BARBITURATES SCREEN URINE NEGATIVE (NEGATIVE); *BENZODIAZEPINES SCREEN URINE NEGATIVE (NEGATIVE)
[2021-03-09 18:14] LABS: *COCAINE SCREEN URINE NEGATIVE (NEGATIVE); CANNABINOID URINE SCREEN NEGATIVE (NEGATIVE); METHADONE URINE SCREEN NEGATIVE (NEGATIVE); OPIATES URINE SCREEN NEGATIVE (NEGATIVE); PHENCYCLIDINE URINE SCREEN NEGATIVE (NEGATIVE)
[2021-03-09] MEDS: CARVEDILOL 12.5MG TABLET PO SCH (21:10)
[2021-03-09] MEDS: ONDANSETRON HCL 4MG/2ML INJ IV PRN (22:10)
[2021-03-10] VITALS (11 sets, daily range): BP systolic 92–155; BP diastolic 56–92
[2021-03-10] MEDS: NITROGLYCERIN OINT 1GM/INCH UDPKT TD SCH ×3 (05:28→20:46)
[2021-03-10 05:56] LABS: BASOPHILS % 0.8 % (0.0-2.0); EOSINOPHILS % 3.7 % (0.0-5.0); HEMATOCRIT. 43.2 % (36.0-48.0); HEMOGLOBIN. 13.6 g/dL (12.0-16.0); LYMPHOCYTES % 21.3 % (20.0-50.0); MEAN CORPUSCULAR HEMOGLOBIN 28.5 pg (28.0-32.0); MEAN CORPUSCULAR VOLUME 90.2 fL (81.0-99.0); MEAN PLATELET VOLUME 9.1 fl (7.4-10.4); MONOCYTES % 13.6 % (2.0-8.0); NEUTROPHILS % 60.6 % (40.0-76.0); PLATELET 163 x1000/uL (130-400); RED BLOOD CELL COUNT 4.79 mill/uL (4.2-5.4); RED CELL DISTRIBUTION WIDTH 20.6 % (11.6-14.6)
[2021-03-10] MEDS: ENOXAPARIN 40MG/0.4ML SYR SUBCUT SCH ×2 (09:00→09:03)
[2021-03-10] MEDS: LOSARTAN POTASSIUM 50 MG TABLET PO SCH (09:00)
[2021-03-10] MEDS: FUROSEMIDE 40MG/4ML VIAL IVP SCH ×2 (09:00→17:57)
[2021-03-10] MEDS: ASPIRIN 81MG TABLET PO SCH (09:01)
[2021-03-10] MEDS: CARVEDILOL 12.5MG TABLET PO SCH ×2 (09:01→20:46)
[2021-03-10] MEDS ORDERED: AMLODIPINE 10MG TABLET PO SCH (10:45)
[2021-03-10 13:38] LABS: BG BASE EXCESS -1.9 mmol/L (-2.0-2.0); BG CARBOXYHEMOGLOBIN 0.8 % (0.5-1.5); BG DEOXYHEMOGLOBIN 2.6 % (0.0-5.0); BG FRACTION INSPIRED OXYGEN 21; BG HCO3 ACT 20.9 mmol/L (22.0-26.0); BG METHEMOGLOBIN 0.2 % (0.0-1.5); BG OXYGEN SATURATION 97.4 % (92.0-98.5); BG OXYHEMOGLOBIN 96.4 % (94.0-97.0); BG PCO2 30.7 mmHg (35.0-45.0); BG PH 7.451 (7.350-7.450); BG PO2 91.5 mmHg (75.0-100.0); BG SAMPLE SITE RIGHT RADIAL; BG TOTAL HEMOGLOBIN 14.6 g/dL (12.0-18.0); BG VENT MODE ROOM AIR
[2021-03-10] MEDS: ONDANSETRON HCL 4MG/2ML INJ IV PRN (14:23)
[2021-03-10] MEDS: HYDRALAZINE 20MG/ML VIAL IV PRN (23:43)
[2021-03-11] VITALS (12 sets, daily range): BP systolic 103–155; BP diastolic 26–92
[2021-03-11] MEDS: NITROGLYCERIN OINT 1GM/INCH UDPKT TD SCH ×3 (06:46→21:50)
[2021-03-11 07:14] LABS: HEMATOCRIT. 44.2 % (36.0-48.0); HEMOGLOBIN. 14.3 g/dL (12.0-16.0); MEAN CORPUSCULAR HEMOGLOBIN 28.9 pg (28.0-32.0); MEAN CORPUSCULAR VOLUME 89.3 fL (81.0-99.0); PLATELET 156 x1000/uL (130-400); RED BLOOD CELL COUNT 4.95 mill/uL (4.2-5.4); RED CELL DISTRIBUTION WIDTH 20.6 % (11.6-14.6)
[2021-03-11] MEDS: ENOXAPARIN 40MG/0.4ML SYR SUBCUT SCH ×2 (09:00→09:46)
[2021-03-11] MEDS: ASPIRIN 81MG TABLET PO SCH (09:45)
[2021-03-11] MEDS: FUROSEMIDE 40MG/4ML VIAL IVP SCH ×2 (09:46→17:47)
[2021-03-11] MEDS: CARVEDILOL 12.5MG TABLET PO SCH ×2 (09:46→21:50)
[2021-03-11 10:45] LABS: NUCLEATED RED BLOOD CELLS 1 /100 WBC
[2021-03-11 10:46] LABS: PLATELET ESTIMATE NORMAL
[2021-03-12] VITALS (11 sets, daily range): BP systolic 138–166; BP diastolic 53–104
[2021-03-12 05:59] LABS: HEMATOCRIT. 44.1 % (36.0-48.0); MEAN CORPUSCULAR HEMOGLOBIN 28.4 pg (28.0-32.0); MEAN CORPUSCULAR VOLUME 89.4 fL (81.0-99.0); MEAN PLATELET VOLUME 9.1 fl (7.4-10.4); PLATELET 162 x1000/uL (130-400); RED BLOOD CELL COUNT 4.93 mill/uL (4.2-5.4); RED CELL DISTRIBUTION WIDTH 20.7 % (11.6-14.6)
[2021-03-12] MEDS: NITROGLYCERIN OINT 1GM/INCH UDPKT TD SCH ×2 (06:16→13:16)
[2021-03-12] MEDS: FUROSEMIDE 40MG/4ML VIAL IVP SCH ×2 (08:36→16:15)
[2021-03-12] MEDS: CARVEDILOL 12.5MG TABLET PO SCH ×2 (08:36→21:31)
[2021-03-12] MEDS: ASPIRIN 81MG TABLET PO SCH (08:36)
[2021-03-12] MEDS: ENOXAPARIN 40MG/0.4ML SYR SUBCUT SCH (09:00)
[2021-03-12 10:44] LABS: PLATELET ESTIMATE NORMAL
[2021-03-12] MEDS: CLONIDINE 0.1MG TABLET PO PRN (11:59)
[2021-03-12] MEDS: ONDANSETRON HCL 4MG/2ML INJ IV PRN (14:13)
[2021-03-12] MEDS ORDERED: MORPHINE SULFATE 2 MG/ML CPJ (NOT FOR IM USE) IV NR (14:45)
[2021-03-13] VITALS (9 sets, daily range): BP systolic 122–160; BP diastolic 49–100
[2021-03-13] MEDS: NITROGLYCERIN OINT 1GM/INCH UDPKT TD SCH ×4 (00:24→21:27)
[2021-03-13 05:51] LABS: HEMATOCRIT. 43.7 % (36.0-48.0); HEMOGLOBIN. 14.1 g/dL (12.0-16.0); MEAN CORPUSCULAR HEMOGLOBIN 28.6 pg (28.0-32.0); MEAN CORPUSCULAR VOLUME 88.7 fL (81.0-99.0); MEAN PLATELET VOLUME 9.3 fl (7.4-10.4); PLATELET 163 x1000/uL (130-400); RED BLOOD CELL COUNT 4.93 mill/uL (4.2-5.4); RED CELL DISTRIBUTION WIDTH 20.6 % (11.6-14.6)
[2021-03-13] MEDS: ENOXAPARIN 40MG/0.4ML SYR SUBCUT SCH (09:00)
[2021-03-13] MEDS: FUROSEMIDE 40MG/4ML VIAL IVP SCH ×2 (09:22→17:18)
[2021-03-13] MEDS: CARVEDILOL 12.5MG TABLET PO SCH ×2 (09:22→21:27)
[2021-03-13] MEDS: ASPIRIN 81MG TABLET PO SCH (09:22)
[2021-03-13] MEDS ORDERED: POTASSIUM CHLORIDE 20MEQ TABLET SR PO NR (10:15)
[2021-03-13 11:18] LABS: PLATELET ESTIMATE NORMAL
[2021-03-14] VITALS (7 sets, daily range): BP systolic 122–158; BP diastolic 60–83
[2021-03-14] MEDS: NITROGLYCERIN OINT 1GM/INCH UDPKT TD SCH ×3 (06:44→20:55)
[2021-03-14] MEDS: FUROSEMIDE 40MG/4ML VIAL IVP SCH ×2 (08:43→16:49)
[2021-03-14] MEDS: ASPIRIN 81MG TABLET PO SCH (08:43)
[2021-03-14] MEDS: CARVEDILOL 12.5MG TABLET PO SCH ×2 (08:43→20:55)
[2021-03-14 09:00] LABS: HEMATOCRIT. 38.8 % (36.0-48.0); HEMOGLOBIN. 12.9 g/dL (12.0-16.0); MEAN CORPUSCULAR HEMOGLOBIN 28.9 pg (28.0-32.0); MEAN CORPUSCULAR VOLUME 87.2 fL (81.0-99.0); MEAN PLATELET VOLUME 8.9 fl (7.4-10.4); PLATELET 160 x1000/uL (130-400); RED BLOOD CELL COUNT 4.45 mill/uL (4.2-5.4)
[2021-03-14] MEDS: ENOXAPARIN 40MG/0.4ML SYR SUBCUT SCH (09:00)
[2021-03-14 14:24] LABS: PLATELET ESTIMATE NORMAL
[2021-03-15] VITALS (7 sets, daily range): BP systolic 139–170; BP diastolic 67–86
[2021-03-15] MEDS: NITROGLYCERIN OINT 1GM/INCH UDPKT TD SCH ×3 (05:06→21:22)
[2021-03-15] MEDS: CARVEDILOL 12.5MG TABLET PO SCH ×2 (09:00→21:22)
[2021-03-15] MEDS: ASPIRIN 81MG TABLET PO SCH (09:00)
[2021-03-15] MEDS: FUROSEMIDE 40MG/4ML VIAL IVP SCH ×2 (09:00→18:34)
[2021-03-15] MEDS: ENOXAPARIN 40MG/0.4ML SYR SUBCUT SCH (09:01)
[2021-03-15] MEDS ORDERED: LOSARTAN POTASSIUM 25 MG TABLET PO SCH ×2 (11:00→21:00)
[2021-03-15] MEDS ORDERED: POTASSIUM CHLORIDE 20MEQ TABLET SR PO NR (11:30)
[2021-03-16 00:32] VITALS: BP 153/74
[2021-03-16 04:00] VITALS: BP 165/81
[2021-03-16] MEDS: NITROGLYCERIN OINT 1GM/INCH UDPKT TD SCH ×3 (06:29→21:51)
[2021-03-16 08:00] VITALS: BP 168/82
[2021-03-16] MEDS ORDERED: POTASSIUM CHLORIDE 20MEQ TABLET SR PO ONE (09:00)
[2021-03-16] MEDS ORDERED: MAGNESIUM OXIDE 400MG TABLET PO SCH (09:00)
[2021-03-16] MEDS: ASPIRIN 81MG TABLET PO SCH (09:09)
[2021-03-16] MEDS: FUROSEMIDE 40MG/4ML VIAL IVP SCH ×2 (09:10→17:13)
[2021-03-16] MEDS: LOSARTAN POTASSIUM 50 MG TABLET PO SCH ×2 (09:10→20:17)
[2021-03-16] MEDS: CARVEDILOL 12.5MG TABLET PO SCH ×2 (09:10→20:17)
[2021-03-16] MEDS: ENOXAPARIN 40MG/0.4ML SYR SUBCUT SCH ×2 (09:11→09:17)
[2021-03-16 09:45] LABS: HEMATOCRIT. 41.2 % (36.0-48.0); HEMOGLOBIN. 13.3 g/dL (12.0-16.0); MEAN CORPUSCULAR HEMOGLOBIN 28.1 pg (28.0-32.0); MEAN CORPUSCULAR VOLUME 86.8 fL (81.0-99.0); MEAN PLATELET VOLUME 8.7 fl (7.4-10.4); PLATELET 164 x1000/uL (130-400); RED BLOOD CELL COUNT 4.75 mill/uL (4.2-5.4); RED CELL DISTRIBUTION WIDTH 19.8 % (11.6-14.6)
[2021-03-16 11:01] LABS: PLATELET ESTIMATE NORMAL
[2021-03-16 12:00] VITALS: BP 130/70
[2021-03-16] MEDS ORDERED: POTASSIUM CHLORIDE 20MEQ TABLET SR PO NR (13:15)
[2021-03-16] MEDS ORDERED: MAGNESIUM OXIDE 400MG TABLET PO NR (13:15)
[2021-03-16 16:00] VITALS: BP 149/71
[2021-03-16 20:00] VITALS: BP 164/85
[2021-03-16] MEDS: ACETAMINOPHEN 325MG TABLET PO PRN (20:17)
[2021-03-16] MEDS: CLONIDINE 0.1MG TABLET PO PRN (21:57)
[2021-03-17] VITALS: BP 156/78
[2021-03-17 04:00] VITALS: BP 168/83
[2021-03-17] MEDS: CLONIDINE 0.1MG TABLET PO PRN ×2 (04:14→22:12)
[2021-03-17] MEDS: NITROGLYCERIN OINT 1GM/INCH UDPKT TD SCH ×3 (06:36→22:10)
[2021-03-17] MEDS: CARVEDILOL 12.5MG TABLET PO SCH ×2 (09:59→20:29)
[2021-03-17] MEDS: ASPIRIN 81MG TABLET PO SCH (09:59)
[2021-03-17] MEDS: LOSARTAN POTASSIUM 50 MG TABLET PO SCH ×2 (09:59→20:29)
[2021-03-17] MEDS: FUROSEMIDE 40MG/4ML VIAL IVP SCH ×2 (09:59→18:14)
[2021-03-17 12:00] VITALS: BP 125/64
[2021-03-17 16:00] VITALS: BP 149/72
[2021-03-17 20:00] VITALS: BP 151/75
[2021-03-18] VITALS: BP 160/75
[2021-03-18] MEDS ORDERED: HYDRALAZINE 10 MG in DEXTROSE 5% WATER 50 ML IV PRN (01:00)
[2021-03-18 04:00] VITALS: BP 155/70
[2021-03-18] MEDS: NITROGLYCERIN OINT 1GM/INCH UDPKT TD SCH ×3 (06:28→22:20)
[2021-03-18 08:00] VITALS: BP 153/73
[2021-03-18] MEDS: FUROSEMIDE 40MG/4ML VIAL IVP SCH ×2 (09:00→17:40)
[2021-03-18] MEDS: ENOXAPARIN 40MG/0.4ML SYR SUBCUT SCH (09:00)
[2021-03-18] MEDS: ASPIRIN 81MG TABLET PO SCH (09:37)
[2021-03-18] MEDS: LOSARTAN POTASSIUM 50 MG TABLET PO SCH ×2 (09:39→22:19)
[2021-03-18] MEDS: CARVEDILOL 12.5MG TABLET PO SCH ×2 (09:40→21:00)
[2021-03-18] MEDS: ACETAMINOPHEN 325MG TABLET PO PRN (09:55)
[2021-03-18 12:00] VITALS: BP 129/69
[2021-03-18 16:00] VITALS: BP 141/70
[2021-03-18] MEDS ORDERED: POTASSIUM CHLORIDE 20MEQ TABLET SR PO NR (22:45)
[2021-03-19 04:00] VITALS: BP 157/89
[2021-03-19] MEDS: NITROGLYCERIN OINT 1GM/INCH UDPKT TD SCH ×3 (06:21→20:54)
[2021-03-19 07:46] LABS: HEMATOCRIT. 42.9 % (36.0-48.0); HEMOGLOBIN. 14.2 g/dL (12.0-16.0); MEAN CORPUSCULAR HEMOGLOBIN 28.3 pg (28.0-32.0); MEAN CORPUSCULAR VOLUME 85.7 fL (81.0-99.0); MEAN PLATELET VOLUME 8.9 fl (7.4-10.4); PLATELET 193 x1000/uL (130-400); RED BLOOD CELL COUNT 5.01 mill/uL (4.2-5.4); RED CELL DISTRIBUTION WIDTH 20.1 % (11.6-14.6)
[2021-03-19 08:00] VITALS: BP 156/91
[2021-03-19] MEDS: ENOXAPARIN 40MG/0.4ML SYR SUBCUT SCH (09:00)
[2021-03-19] MEDS: LOSARTAN POTASSIUM 50 MG TABLET PO SCH ×2 (09:46→20:52)
[2021-03-19] MEDS: FUROSEMIDE 40MG/4ML VIAL IVP SCH ×2 (09:46→16:37)
[2021-03-19] MEDS: ASPIRIN 81MG TABLET PO SCH (09:46)
[2021-03-19] MEDS: CARVEDILOL 12.5MG TABLET PO SCH ×2 (09:47→20:53)
[2021-03-19 12:00] VITALS: BP 118/74
[2021-03-19 16:00] VITALS: BP 152/80
[2021-03-19 20:00] VITALS: BP 166/81
[2021-03-19] MEDS: ENOXAPARIN 30MG/0.3ML SYR SUBCUT SCH ×2 (20:53→21:00)
[2021-03-19 22:43] LABS: PLATELET ESTIMATE NORMAL
[2021-03-20] VITALS: BP 152/74
[2021-03-20 04:00] VITALS: BP 134/85
[2021-03-20] MEDS: NITROGLYCERIN OINT 1GM/INCH UDPKT TD SCH ×3 (06:00→21:23)
[2021-03-20 08:00] VITALS: BP 174/95
[2021-03-20] MEDS: ENOXAPARIN 30MG/0.3ML SYR SUBCUT SCH ×2 (09:00→21:00)
[2021-03-20] MEDS: ASPIRIN 81MG TABLET PO SCH (09:38)
[2021-03-20] MEDS: FUROSEMIDE 40MG/4ML VIAL IVP SCH ×2 (09:38→18:04)
[2021-03-20] MEDS: CARVEDILOL 12.5MG TABLET PO SCH ×2 (09:39→21:23)
[2021-03-20] MEDS: LOSARTAN POTASSIUM 50 MG TABLET PO SCH ×2 (09:39→21:23)
[2021-03-20 12:00] VITALS: BP 116/66
[2021-03-20 16:00] VITALS: BP 144/84
[2021-03-20 20:00] VITALS: BP 130/64
[2021-03-21] VITALS: BP 133/62
[2021-03-21 04:00] VITALS: BP 137/85
[2021-03-21] MEDS: NITROGLYCERIN OINT 1GM/INCH UDPKT TD SCH ×3 (05:58→21:15)
[2021-03-21 08:00] VITALS: BP 166/92
[2021-03-21] MEDS: ENOXAPARIN 30MG/0.3ML SYR SUBCUT SCH ×2 (09:00→21:00)
[2021-03-21] MEDS: FUROSEMIDE 40MG/4ML VIAL IVP SCH ×2 (09:24→17:38)
[2021-03-21] MEDS: ASPIRIN 81MG TABLET PO SCH (09:24)
[2021-03-21] MEDS: LOSARTAN POTASSIUM 50 MG TABLET PO SCH ×2 (09:25→21:15)
[2021-03-21] MEDS: CARVEDILOL 12.5MG TABLET PO SCH ×2 (09:25→21:15)
[2021-03-21 12:00] VITALS: BP 133/84
[2021-03-21 16:00] VITALS: BP 134/90
[2021-03-21 20:00] VITALS: BP 140/77
[2021-03-22] VITALS (7 sets, daily range): BP systolic 126–173; BP diastolic 68–93
[2021-03-22] MEDS: NITROGLYCERIN OINT 1GM/INCH UDPKT TD SCH ×3 (05:24→21:37)
[2021-03-22] MEDS: CLONIDINE 0.1MG TABLET PO PRN (05:24)
[2021-03-22] MEDS: ENOXAPARIN 30MG/0.3ML SYR SUBCUT SCH ×3 (09:00→21:36)
[2021-03-22] MEDS: ASPIRIN 81MG TABLET PO SCH (09:53)
[2021-03-22] MEDS: LOSARTAN POTASSIUM 50 MG TABLET PO SCH ×2 (09:53→21:36)
[2021-03-22] MEDS: CARVEDILOL 12.5MG TABLET PO SCH ×2 (09:53→21:36)
[2021-03-22] MEDS: FUROSEMIDE 40MG/4ML VIAL IVP SCH ×2 (09:53→17:42)
[2021-03-23] VITALS: BP 157/84
[2021-03-23] MEDS: CLONIDINE 0.1MG TABLET PO PRN (02:05)
[2021-03-23 04:00] VITALS: BP 153/91
[2021-03-23] MEDS: NITROGLYCERIN OINT 1GM/INCH UDPKT TD SCH ×3 (06:25→22:02)
[2021-03-23 08:00] VITALS: BP 168/88
[2021-03-23] MEDS: LOSARTAN POTASSIUM 50 MG TABLET PO SCH ×2 (09:00→22:06)
[2021-03-23] MEDS: ENOXAPARIN 30MG/0.3ML SYR SUBCUT SCH ×3 (09:00→22:01)
[2021-03-23] MEDS: ASPIRIN 81MG TABLET PO SCH (09:01)
[2021-03-23] MEDS: CARVEDILOL 12.5MG TABLET PO SCH ×2 (09:01→22:01)
[2021-03-23] MEDS: FUROSEMIDE 40MG/4ML VIAL IVP SCH ×2 (09:02→17:28)
[2021-03-23 12:03] VITALS: BP 118/72
[2021-03-23 16:00] VITALS: BP 124/70
[2021-03-23 20:00] VITALS: BP 135/74
[2021-03-24] MEDS: NITROGLYCERIN OINT 1GM/INCH UDPKT TD SCH (06:00)
[2021-03-24] MEDS: CLONIDINE 0.1MG TABLET PO PRN (06:00)
[2021-03-24 08:00] VITALS: BP 135/74
[2021-03-24 08:39] VITALS: BP 157/95
[2021-03-24] MEDS: LOSARTAN POTASSIUM 50 MG TABLET PO SCH (09:23)
[2021-03-24] MEDS: FUROSEMIDE 40MG/4ML VIAL IVP SCH (09:23)
[2021-03-24] MEDS: CARVEDILOL 12.5MG TABLET PO SCH (09:23)
[2021-03-24] MEDS: ENOXAPARIN 30MG/0.3ML SYR SUBCUT SCH (09:24)
[2021-03-24] MEDS: ASPIRIN 81MG TABLET PO SCH (09:24)
[2021-03-24 10:10] VITALS: BP 157/95
== END 2021-03-24 13:20 | DRG 190 ==
LOC: ER 05:23 → 5EST 07:41 → EDBEDREQSVC 10:35 → ENRESERV 10:42 → 5EST 12:00 → 6WST 03-13 16:32 → 6EST 03-16 17:31
PROVIDERS: ADMIT Internal Medicine; ATTEND Internal Medicine
DX: I21.4 Non-ST elevation (NSTEMI) myocardial infarction (principal); I50.43 Acute on chronic combined systolic (congestive) and diastolic (congestive) heart failure; E11.22 Type 2 diabetes mellitus with diabetic chronic kidney disease; I27.20 Pulmonary hypertension, unspecified; N18.4 Chronic kidney disease, stage 4 (severe); N17.9 Acute kidney failure, unspecified; I42.9 Cardiomyopathy, unspecified; I13.0 Hypertensive heart and chronic kidney disease with heart failure and stage 1 through stage 4 chronic kidney disease, or unspecified chronic kidney disease; E66.9 Obesity, unspecified; F17.200 Nicotine dependence, unspecified, uncomplicated; R00.0 Tachycardia, unspecified; D63.8 Anemia in other chronic diseases classified elsewhere; G47.33 Obstructive sleep apnea (adult) (pediatric); E78.5 Hyperlipidemia, unspecified; Z20.822 Contact with and (suspected) exposure to COVID-19; J44.9 Chronic obstructive pulmonary disease, unspecified; I16.0 Hypertensive urgency; Z79.82 Long term (current) use of aspirin; Z79.84 Long term (current) use of oral hypoglycemic drugs; Z79.899 Other long term (current) drug therapy; Z91.14 Patient's other noncompliance with medication regimen; Z98.891 History of uterine scar from previous surgery; Z91.19 Patient's noncompliance with other medical treatment and regimen
CPT/HCPCS: 36415; 36600; 71045; 80048; 80053; 80061; 80305; 81003; 82140; 82375; 82805; 83735; 83880; 83970; 84100; 84443; 84484; 85025; 87426; 93005; 93970; 97110; 97116; 97162; 97166; 97535; 99291; J0360; J1650; J1940; J2270; J2405